=== PATIENT | male | born 1985 ===

== ENCOUNTER → 2021-04-25 | Outpatient (REF) ==
[~2021-04-25] MED LIST: IMITREX100 MG PO
== END ==
LOC: COL.LAB 17:45
DX: Z01.89 Encounter for other specified special examinations (principal)

== ENCOUNTER 2021-06-22 23:49 | Emergency (ER) | payer SELFPAY ==
[~2021-06-22] VITALS: Ht 170.2 cm; Wt 75.0 kg
[2021-06-23 00:33] VITALS: TEMP 98.4
[2021-06-23 01:11] LABS: BASO # 0.1 (0.0-0.2); BASO % 0.4 % (0.0-2.0); EOS % 0.1 % (0-4.0); GRAN % 84.7 % (42.2-75.2); HEMATOCRIT 44.5 % (42.0-52.0); HEMOGLOBIN 14.9 g/dl (13.5-18.0); LYMPH # 1.1 (1.2-3.4); MEAN CELL VOLUME 90 fl (80.0-100.0); MEAN CORPUSCULAR HEMOGLOBIN 30 pg (27.0-31.0); MEAN CORPUSCULAR HGB CONC 34 g/dl (33.0-37.0); MEAN PLATELET VOLUME 8.8 fl (7.4-10.4); MONO # 0.6 (0.1-0.6); MONO % 5.4 % (1.7-9.3); PLATELET COUNT 289 K/mm3 (130-400); RED BLOOD COUNT 4.94 M/mm3 (4.20-5.60)
[2021-06-23 01:29] LABS: ACETAMINOPHEN < 10 ug/mL (10-30); ALANINE AMINOTRANSFERASE 30 U/L (4-49); ALBUMIN 4.6 gm/dL (3.5-5.0); ALCOHOL(ethanol),MEDICAL < 10 mg/dL; ALKALINE PHOSPHATASE 106 U/L (50-136); ANION GAP 9 mmol/L (7-16); AST,SGOT 61 U/L (15-37); BILIRUBIN,TOTAL 0.7 mg/dL (0.0-1.0); BLOOD UREA NITROGEN 12 mg/dL (9-20); CALCIUM 9.7 mg/dL (8.4-10.2); CARBON DIOXIDE 27 mmol/L (22-30); CHLORIDE 104 mmol/L (98-107); CREATININE, serum 1.14 (0.66-1.25); GLUCOSE 93 mg/dL (74-106); POTASSIUM 3.5 mmol/L (3.4-5.0); SALICYLATE < 1.0 mg/dL; SODIUM 140 mmol/L (137-145); TOTAL PROTEIN 8.4 gm/dL (6.4-8.2)
[2021-06-23 02:51] LABS: COLLECTION METHOD CLEAN CATCH
[2021-06-23 03:00] LABS: MUCOUS Present /lpf; PH 5 (5-8); SQUAMOUS EPITHELIAL 0-2 /hpf; URINE APPEARANCE Hazy; URINE BACTERIA Rare /hpf; URINE BILIRUBIN Negative (NEGATIVE); URINE BLOOD Negative (NEGATIVE); URINE COLOR Amber; URINE GLUCOSE Negative (NEGATIVE); URINE KETONE 1+ (NEGATIVE); URINE LEUKOCYTE ESTERASE Negative (NEGATIVE); URINE NITRATE Negative (NEGATIVE); URINE PROTEIN(semi-quant) 2+ (NEGATIVE); URINE RBC 0-2 /hpf
[2021-06-23 03:04] LABS: TRICYCLIC ANTIDEPRESS URINE NEGATIVE
[2021-06-23 10:47] VITALS: BP 122/54
[2021-06-23 14:57] VITALS: PULSE 97
== END 2021-06-23 14:57 | disposition home or self-care (01) ==
LOC: COL.ER 23:49
PROVIDERS: Emergency Medicine
DX: F22 Delusional disorders (principal); Z20.822 Contact with and (suspected) exposure to COVID-19

== ENCOUNTER 2021-07-10 09:15 | Emergency (ER) | payer SELFPAY ==
[~2021-07-10] VITALS: Ht 162.6 cm; Wt 84.1 kg
[2021-07-10 09:39] VITALS: TEMP 98.2
[2021-07-10] MEDS ORDERED: IMITREX100 MG PO (11:43)
[2021-07-10 12:00] VITALS: BP 129/82; PULSE 82
== END 2021-07-10 12:00 | disposition home or self-care (01) ==
LOC: COL.ER 09:15 → EDBD 09:19 → COL.ER 09:19
DX: F22 Delusional disorders (principal); F32.9 Major depressive disorder, single episode, unspecified; R51.9 Headache, unspecified
CPT/HCPCS: J1200; J1885; J2550; J7030